=== PATIENT | female | born 1935 | race Caucasian/White ===

== ENCOUNTER → 2017-01-27 | Outpatient (CLI) | payer OTHER ==
[~2017-01-27] MED LIST: CIPROFLOXACIN500 M1 PO; FLAGYL500 MG PO; NORCO 5-325 TA1 EACH PO
== END ==
LOC: MRI 08:50
DX: R51 Headache (principal); R42 Dizziness and giddiness; R41.0 Disorientation, unspecified

== ENCOUNTER → 2020-04-30 | Outpatient (CLI) | payer OTHER, MEDICARE | LOC: ULTRA 10:48 | PROVIDERS: ATTEND Family Medicine | DX: E89.0 Postprocedural hypothyroidism (principal); E04.1 Nontoxic single thyroid nodule ==

== ENCOUNTER → 2021-03-10 | Outpatient (CLI) | payer OTHER, MEDICARE | LOC: ULTRA 10:46 | PROVIDERS: ATTEND Family Medicine | DX: E04.8 Other specified nontoxic goiter (principal); E04.1 Nontoxic single thyroid nodule ==